=== PATIENT | female | born 1960 | race Caucasian/White ===

== ENCOUNTER 2017-10-28 08:00 | Outpatient (CLI) | payer OTHER ==
[2017-10-28 19:01] LABS: BASOPHILS # (AUTO) 0.1 10^3/uL (0.0-0.1); BASOPHILS % (AUTO) 1.4 %; EOSINOPHILS # (AUTO) 0.2 10^3/uL (0.0-0.7); EOSINOPHILS % (AUTO) 4.3 %; LYMPHOCYTES # (AUTO) 2.3 10^3/uL (1.5-3.5); LYMPHOCYTES % (AUTO) 46.1 %; MEAN CORPUSCULAR HGB CONC 32.8 g/dL (32.0-36.0); MEAN CORPUSCULAR VOLUME 88.6 fL (81.0-99.0); MEAN PLATELET VOLUME 7.4 fL (7.9-10.8); MONOCYTES # (AUTO) 0.4 10^3/uL (0.0-1.0); NEUTROPHILS # (AUTO) 2.1 10^3/uL (1.5-6.6); NEUTROPHILS % (AUTO) 41.2 %; PLT - PLATELET COUNT 330 10^3/uL (130-450); RED BLOOD COUNT 4.49 10^6/uL (4.20-5.40); RED CELL DISTRIBUTION WIDTH 14.3 % (12.0-15.0); WHITE BLOOD COUNT 5.1 x10^3/uL (4.8-10.8)
[2017-10-28 19:20] LABS: ALBUMIN 4.1 g/dL (3.2-5.5); ALBUMIN/GLOBULIN RATIO 1.1 (1.0-2.2); ALKALINE PHOSPHATASE 69 IU/L (42-121); ALT ALANINE AMINOTRANSFERASE 22 IU/L (10-60); AST ASPARTATE AMINOTRANSFERASE 22 IU/L (10-42); BILIRUBIN,TOTAL 0.6 mg/dL (0.2-1.0); BUN - BLOOD UREA NITROGEN 19 mg/dL (6-20); CALCIUM 9.1 mg/dL (8.5-10.3); CARBON DIOXIDE - CO2 26 mmol/L (21-32); CHLORIDE 105 mmol/L (101-111); CHOL/HDL RATIO 3.4 (<4.4); CHOLESTEROL 162 mg/dL; CREATININE 0.7 mg/dL (0.4-1.0); GFR - MDRD 86 (>89); GLUCOSE 101 mg/dL (70-100); HDL CHOLESTEROL 47 mg/dL; LDL CHOLESTEROL,CALCULATED 90 mg/dL; LDL/HDL RATIO 1.9 (<4.4); SODIUM 138 mmol/L (135-145); TOTAL PROTEIN 7.8 g/dL (6.7-8.2); VLDL CHOLESTEROL 25 mg/dL
[2017-10-28 19:35] LABS: HB2 TOTAL 13.8 g/dL; HEMOGLOBIN A1C 0.48 g/dL; HEMOGLOBIN A1C % 5.3 % (4.6-6.2)
== END 2017-10-28 23:59 ==
LOC: LAB.WCP 08:00
PROVIDERS: ATTEND Family Medicine
DX: Z00.00 Encounter for general adult medical examination without abnormal findings (principal)
CPT/HCPCS: 36415; 80053; 80061; 83036; 83721; 84443; 85025

== ENCOUNTER 2019-06-12 18:44 | Emergency (ER) | payer OTHER ==
[2019-06-12 18:58] VITALS: BP 126/72
[2019-06-12] MEDS ORDERED: TETANUS/DIPHTHERIA/PERTUSSIS 0.5 ML SYRINGE IM ONE (19:15)
--- NOTE | 2019-06-12 19:18 | ED Physician Documentation ---
History of Present Illness - Stated complaint Stated Complaint: LT ARM LAC - Chief complaint Chief Complaint: Laceration - History obtained from History obtained from: Patient - History of Present Illness Timing: Today Pain level max: 2 Pain level now: 1 - Additonal information Additional information: 59-year-old female sustained a laceration to the volar aspect of the left wrist from a glass jar. Nothing makes it better or worse. Not currently bleeding. Unknown last tetanus. 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 - Present Medications Home Medications: Ambulatory Orders Medication Instructions Recorded Confirmed Ibuprofen 400 mg PO DAILY 01/02/15 01/02/15 Sertraline [Zoloft] 50 mg PO DAILY 01/02/15 01/03/15 - Allergies Allergies/Adverse Reactions: Allergies Allergy/AdvReac Type Severity Reaction Status Date / Time No Known Drug Allergies Allergy Verified 06/12/19 18:48 - Social History Does the pt smoke?: No Smoking Status: Never smoker Does the pt drink ETOH?: Yes ETOH Use: Wine Does the pt have substance abuse?: No - Immunizations Immunizations: TDAP >10years/unknown - POLST Patient has POLST: No PD ED PE NORMAL - Vitals Vital signs reviewed: Yes - General General: Alert and oriented X 3, No acute distress - HEENT HEENT: Moist mucous membranes - Neck Neck: Supple, no meningeal sign - Derm Derm: Warm and dry - Extremities Extremities: Other (2 cm linear laceration to the volar aspect of the left wrist. Superficial. Neurovascular intact. No tendon injury.) - Neuro Neuro: Alert and oriented X 3 Results - Vitals Vitals: Vital Signs - 24 hr 06/12/19 06/12/19 06/12/19 18:48 18:57 19:08 Temperature 36.5 C 36.8 C Heart Rate 67 68 Respiratory 14 16 16 Rate Blood Pressure 126/75 126/72 O2 Saturation 98 96 Oxygen O2 Source Room air Procedures - Laceration (location) L wrist Length in cm: 2 Wound type: Linear, Superficial, Clean Neurovascular status: Sensory intact, Motor intact, Vascular intact Tendon involvement: Tendon intact Wound Preparation: Irrigated copiously NS Skin layer closure: Dermabond, Steri strips Other: Patient tolerated well, No complications, Neurovascular intact, Tetanus booster given (tdap) Complexity: Simple PD MEDICAL DECISION MAKING - ED course Complexity details: considered differential, d/w patient ED course: Patient with a superficial laceration. Discussed sutures versus Dermabond and Steri-Strips. She would like to try Dermabond and Steri-Strips at this time. Recommend that she limit use of her left wrist while this is healing. Recommend that she follow-up with her doctor for further care. Warnings of infection and instructions on wound care given at bedside. Also counseled on how to minimize scarring. Patient counseled regarding signs and symptoms for which I believe and urgent re-evaluation would be necessary. Patient with good understanding of and agreement to plan and is comfortable going home at this time This document was made in part using voice recognition software. While efforts are made to proofread this document, sound alike and grammatical errors may occur. Departure - Departure Disposition: 01 Home, Self Care Clinical Impression: Laceration of wrist Qualifiers: Encounter type: initial encounter Laterality: left Qualified Code(s): S61.512A - Laceration without foreign body of left wrist, initial encounter Condition: Good Instructions: ED Laceration Hand Follow-Up: your,doctor as needed. [Other] Comments: The glue and Steri-Strips will fall off in a few days. Return if you worsen. Keep the wound clean. Return especially for redness, swelling or drainage from the wound.
== END 2019-06-12 19:30 | disposition home or self-care (01) ==
LOC: ED 18:44
DX: S61.512A Laceration without foreign body of left wrist, initial encounter (principal); W25.XXXA Contact with sharp glass, initial encounter
CPT/HCPCS: 12001; 90471; 99283; 99284

== ENCOUNTER 2021-08-04 09:19 | Outpatient (CLI) | payer OTHER ==
--- NOTE | 2021-08-05 09:03 | Mammography Report ---
BILATERAL DIGITAL SCREENING MAMMOGRAM 3D/2D: 08/04/2021 CLINICAL: Routine screening. Comparison is made to exam dated: 12/06/2012 mammogram - [facility]. The tissue of both breasts is heterogeneously dense. This may lower the sensitivity of mammography. There is a possible oval equal density asymmetry with an obscured and circumscribed margin in the lef t breast at 7 o'clock anterior depth. No other significant masses, calcifications, or other findings are seen in either breast. IMPRESSION: INCOMPLETE: NEEDS ADDITIONAL IMAGING EVALUATION The possible oval equal density asymmetry in the left breast is indeterminate. Additional views with possible ultrasound are recommended. This exam was interpreted at Station ID: [id number]. NOTE: For mammograms, a report in lay terms will be sent to the patient. Approximately 15% of breast malignancies will not be visualized mammographically. In the management of a palpable breast mass, a negative mammogram must not discourage biopsy of a clinically suspicious lesion. Electronically Signed By: Stacy jasso/:08/04/2021 16:35:56 ACR BI-RADS Category 0: Incomplete 3340F PARENCHYMAL PATTERN: (D) - The breast(s) demonstrate(s) heterogeneously dense fibroglandular parpato maurer. BI-RADS CATEGORY: (0) - 0 Mammo and [place] [id number] Immediate follow-up LATERALITY: (B)
== END 2021-08-04 09:20 | disposition home or self-care (01) ==
LOC: DI.N 09:19
PROVIDERS: ATTEND Internal Medicine
DX: Z12.31 Encounter for screening mammogram for malignant neoplasm of breast (principal); R92.8 Other abnormal and inconclusive findings on diagnostic imaging of breast

== ENCOUNTER 2021-09-11 13:54 | Emergency (ER) | payer OTHER ==
[2021-09-11 14:06] VITALS: BP 140/80
[2021-09-11] MEDS ORDERED: NIRMATRELVIR/RITONAVIR PREPACK PO STA (14:11)
--- NOTE | 2021-09-11 14:12 | ED Physician Documentation ---
History of Present Illness - Stated complaint Stated Complaint: C+ HEAD PX/SOA/BODY ACHES - Chief complaint Chief Complaint: General - History obtained from History obtained from: Patient (61-year-old woman presents requesting paxlovid for COVID. She got sick yesterday with headaches and body aches and tested positive at home today. She denies shortness of breath. 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 - Present Medications Home Medications: Ambulatory Orders Medication Instructions Recorded Confirmed No Known Home Medications 09/11/21 09/11/21 - Allergies Allergies/Adverse Reactions: Allergies Allergy/AdvReac Type Severity Reaction Status Date / Time No Known Drug Allergies Allergy Verified 09/11/21 14:00 - Social History Does the pt smoke?: No Smoking Status: Never smoker Does the pt drink ETOH?: Yes Does the pt have substance abuse?: No - Immunizations Immunizations: TDAP >10years/unknown - POLST Patient has POLST: No PD ED PE NORMAL - Vitals Vital signs reviewed: Yes - General General: Alert and oriented X 3, No acute distress - Neck Neck: Supple, no meningeal sign - Derm Derm: Normal color, Warm and dry - Neuro Neuro: Alert and oriented X 3, Normal speech Results - Vitals Vitals: Vital Signs - 24 hr 09/11/21 14:00 Temperature 36.8 C Heart Rate 82 Respiratory 18 Rate Blood Pressure 140/80 H O2 Saturation 100 Oxygen O2 Source Room air PD MEDICAL DECISION MAKING - ED course ED course: 61-year-old woman presents requesting paxlovid for COVID and this is dispensed per hospital policy. No concerning medication interactions. Departure - Departure Disposition: Home, Self Care Clinical Impression: COVID-19 Condition: Good Record reviewed to determine appropriate education?: Yes Instructions: ED Viral Syndrome Comments: Return if you worsen or develop significant shortness of breath. Otherwise take the paxlovid as directed per package instructions. Tylenol and/or ibuprofen as needed for aches and pains. Drink plenty of fluids. Self quarantine per CDC guidelines.
== END 2021-09-11 14:17 | disposition home or self-care (01) ==
LOC: ED 13:54
DX: U07.1 COVID-19 (principal)
CPT/HCPCS: 99281; 99282; J3490

== ENCOUNTER 2022-05-11 11:42 | Outpatient (CLI) | payer OTHER ==
--- NOTE | 2022-05-11 19:44 | XRAY Report ---
PROCEDURE: Foot 3 View BILAT INDICATIONS: RT FOOT PAIN/LEFT FOOT PAIN TECHNIQUE: 3 views of the foot were acquired. COMPARISON: X-ray bilateral ankle 05/11/2022, x-ray foot 06/03/2016, 07/07/2016 FINDINGS: Bones: No fractures or dislocations. No suspicious bony lesions. Hallux valgus deformity is noted on the right, slightly progressive compared to prior exam. Scattered IP degenerative changes are pres ent bilaterally. Soft tissues: No tibiotalar joint effusion. Achilles tendon appears normal. IMPRESSION: Bilateral IP degenerative changes with mildly progressive hallux valgus deformity on the right. Reviewed by: Milagros Key MD on 05/11/2022 7:43 PM PST Approved by: Milagros Key MD on 05/11/2022 7:43 PM PST Station ID: [id number]
--- NOTE | 2022-05-11 19:45 | XRAY Report ---
PROCEDURE: Ankle 3 View BILAT INDICATIONS: RT FOOT PAIN/LEFT FOOT PAIN TECHNIQUE: 3 views of the ankle were acquired. COMPARISON: X-ray foot 05/11/2022, 06/04/2016, 3-17 FINDINGS: Bones: No fractures or dislocations. Ankle mortise is normally aligned. No suspicious bony lesions . Calcaneal spur is present on the left. Prominent spur is noted at the left anterior talus. Mild bi lateral, left greater than right midfoot degenerative change. Soft tissues: No tibiotalar joint effusion. Achilles tendon appears normal. IMPRESSION: Degenerative changes most notably on the left. Reviewed by: Milagros Key MD on 05/11/2022 7:43 PM PST Approved by: Milagros Key MD on 05/11/2022 7:43 PM PST Station ID: [id number]
== END 2022-05-11 11:43 | disposition home or self-care (01) ==
LOC: DI 11:42
PROVIDERS: ATTEND Podiatrist
DX: M19.072 Primary osteoarthritis, left ankle and foot (principal); M19.071 Primary osteoarthritis, right ankle and foot; M20.11 Hallux valgus (acquired), right foot

== ENCOUNTER 2022-12-08 10:35 | Outpatient (CLI) | payer OTHER ==
--- NOTE | 2022-12-13 12:41 | XRAY Report ---
PROCEDURE: Hip w/Pelvis 2-3V RT INDICATIONS: PAIN IN RIGHT HIP TECHNIQUE: AP pelvis with lateral view(s) of the right hip(s). COMPARISON: None. FINDINGS: Bones: No fractures or dislocations. No suspicious bony lesions. Mild right hip osteoarthritis. Soft tissues: No suspicious soft tissue calcifications or masses. IMPRESSION: No acute bony abnormality. Mild right hip osteoarthritis. Reviewed by: Cristal Menendez MD on 12/08/2022 12:56 PM PDT Approved by: Cristal Menendez MD on 12/08/2022 12:56 PM PDT Station ID: [id number]
== END 2022-12-08 10:36 | disposition home or self-care (01) ==
LOC: DI 10:35
PROVIDERS: ATTEND Internal Medicine
DX: M16.11 Unilateral primary osteoarthritis, right hip (principal)

== ENCOUNTER 2023-10-06 10:10 | Outpatient (CLI) | payer OTHER ==
--- NOTE | 2023-10-07 02:38 | XRAY Report ---
PROCEDURE: Ankle 3+V RT INDICATIONS: RIGHT ANKLE PAIN TECHNIQUE: 3 views of the ankle were acquired. COMPARISON: 05/11/2022 FINDINGS: Bones: No fractures or dislocations. Ankle mortise is normally aligned. No suspicious bony lesions . Small calcaneal spur Soft tissues: Unremarkable without significant soft tissue swelling. No radiopaque foreign body. IMPRESSION: Stable small calcaneal spur Reviewed by: Paolo Mak MD on 10/07/2023 1:37 AM AKDT Approved by: Paolo Mak MD on 10/07/2023 1:37 AM AKDT Station ID: [id number]
== END 2023-10-06 10:11 | disposition home or self-care (01) ==
LOC: DI 10:10
PROVIDERS: ATTEND Podiatrist
DX: M77.31 Calcaneal spur, right foot (principal)

== ENCOUNTER 2023-11-08 12:29 | Outpatient (CLI) | payer OTHER ==
--- NOTE | 2023-11-08 15:51 | Ultrasound Report ---
PROCEDURE: Extremity Soft Tissue Limited INDICATIONS: KNEE PAIN TECHNIQUE: Real-time scanning was performed of the , with image documentation. COMPARISON: Left knee radiographs from same day. FINDINGS: Multiple grayscale and color Doppler images of the left popliteal fossa were acquired. No evidence for suspicious mass lesion or fluid collections. No findings to suggest a Cunningham/popliteal cy st. IMPRESSION: Negative sonographic evaluation of the posterior left knee. No evidence for Cunningham/poplit eal cyst, abnormal fluid collection, or abnormal mass lesion. Reviewed by: Mike Bardales MD on 11/08/2023 3:49 PM PDT Approved by: Mike Bardales MD on 11/08/2023 3:49 PM PDT Station ID: [id number]
== END 2023-11-08 12:30 | disposition home or self-care (01) ==
LOC: DI 12:29
PROVIDERS: ATTEND Internal Medicine
DX: M25.562 Pain in left knee (principal)

== ENCOUNTER 2023-11-08 12:43 | Outpatient (CLI) | payer OTHER ==
--- NOTE | 2023-11-08 14:39 | XRAY Report ---
PROCEDURE: Knee 3V LT INDICATIONS: L KNEE PAIN TECHNIQUE: 3 views of the left knee were acquired. COMPARISON: None. FINDINGS: Bones: Mild medial compartment joint space narrowing and osteophyte formation. Otherwise, the joint spaces are preserved. No fracture or dislocation. Soft tissues: Trace knee joint effusion. No suspicious soft tissue calcifications or masses. IMPRESSION: Mild medial compartment knee osteoarthritis. Reviewed by: Koko Soria MD on 11/08/2023 2:37 PM PDT Approved by: Koko Soria MD on 11/08/2023 2:37 PM PDT Station ID: [id number]
== END 2023-11-08 12:44 | disposition home or self-care (01) ==
LOC: DI 12:43
PROVIDERS: ATTEND Internal Medicine
DX: M17.12 Unilateral primary osteoarthritis, left knee (principal)